=== PATIENT | female | born 1990 | race Caucasian/White ===

== ENCOUNTER 2016-11-25 16:25 | Emergency (ER) | payer SELFPAY ==
[~2016-11-25] VITALS: Ht 157.5 cm; Wt 52.0 kg
[2016-11-25 16:26] VITALS: BP 149/70; PULSE 77; RESP 15; TEMP 97.7; O2SAT 95
[2016-11-25] MEDS ORDERED: CIPR-9 PO (16:56)
[2016-11-25] MEDS ORDERED: SODIUM CHLOR 0.9% 1000 ML INJ 1,000 ML IV ONE (17:41)
[2016-11-25] MEDS ORDERED: KETOROLAC TROMETHAMINE 30 MG/ML (IVP) VIAL IVP ONE (17:45)
[2016-11-25] MEDS ORDERED: diphenhydrAMINE HCL 50 MG/ML VIAL IVP ONE (17:45)
[2016-11-25] MEDS ORDERED: METOCLOPRAMIDE HCL 10 MG/2 ML VIAL IVP ONE (17:45)
[2016-11-25] MEDS ORDERED: SODIUM CHLORIDE 0.9% FLUSH 5 ML FLUSH IVF PRN (17:45)
--- NOTE | 2016-11-25 17:55 | PD ---
HPI Chief Complaint: Headache Time Seen by Provider: 17:45 Travel History International Travel<30 days: No Contact w/Intl Traveler<30days: No Traveled to known affect area: No History of Present Illness HPI 26-year-old female presents for evaluation of headaches. She reports over the past 2 months she has been headaches which she describes as an aching pain which presents itself on the reports of her head. Currently she is having occipital headache which she sought has tenderness to palpation left posterior cervical lymph nodes and left axillary lymph nodes. Endorses nausea, occasional blurred vision. Denies vomiting, recent illness, sore throat, rash, cough or congestion, weight loss. She does endorse occasional nights sweats. She reports that she was seen for evaluation of these headaches last week at [facility] and [facility]. She reports that lab work, urinalysis and CT of the brain were performed. She was diagnosed with UTI and discharged with an antibiotic. She reports that the CT of the brain was normal. She denies any dysuria, increased urinary frequency or hesitancy. She reports that she has tried multiple medications that her friends have given her including Xanax, Fioricet, Percocet, diazepam, Flexeril as well as [id number] NSAIDs but the headache has persisted. She has no other complaints at this time. [facility] Past Medical History Medical History: Denies Significant Hx ?: Not LMP: 11/10/2016 Social History Tobacco Use: Yes Allergies-Medications (Allergen,Severity, Reaction): Coded Allergies: No Known Allergies (Unverified , 11/25/16) Reported Meds & Prescriptions Reported Meds & Active Scripts Active Zofran (Ondansetron HCl) 4 Mg Tab 4 Mg PO Q6HR PRN Reported Cipro (Ciprofloxacin HCl) 500 Mg Tab 500 Mg PO BID Review of Systems Except as stated in HPI: all other systems reviewed are Neg Physical Exam Narrative GENERAL: Well-developed well-nourished female in no acute distress SKIN: Warm and dry. HEAD: Atraumatic. Normocephalic. EYES: Pupils equal and round. No scleral icterus. No injection or drainage. ENT: No nasal bleeding or discharge. Mucous membranes pink and moist. No oropharyngeal erythema or exudate. NECK: Trachea midline. No JVD. The patient does have mild tender anterior cervical lymphadenopathy. Neck supple full range of motion. No other lymphadenopathy noted. CARDIOVASCULAR: Regular rate and rhythm. No murmur appreciated. RESPIRATORY: No accessory muscle use. Clear to auscultation. Breath sounds equal bilaterally. GASTROINTESTINAL: Abdomen soft, non-tender, nondistended. Hepatic and splenic margins not palpable. MUSCULOSKELETAL: No obvious deformities. The patient has mild tender left axillary lymphadenopathy. NEUROLOGICAL: Awake and alert. No obvious cranial nerve deficits. Motor grossly within normal limits. Normal speech. PSYCHIATRIC: Appropriate mood and affect; insight and judgment normal. Data Data Last Documented VS Vital Signs Date Time Temp Pulse Resp B/P Pulse Ox O2 Delivery O2 Flow Rate FiO2 11/25/16 18:32 92 20 130/48 99 Room Air 11/25/16 16:26 97.7 Orders Complete Blood Count With Diff (11/25/16 17:41) Comprehensive Metabolic Panel (11/25/16 17:41) Ecg Monitoring (11/25/16 17:41) Iv Access Insert/Monitor (11/25/16 17:41) Oximetry (11/25/16 17:41) Sodium Chloride 0.9% Flush (Ns Flush) (11/25/16 17:45) Ketorolac Inj (Toradol Inj) (11/25/16 17:45) Diphenhydramine Inj (Benadryl Inj) (11/25/16 17:45) Metoclopramide Inj (Reglan Inj) (11/25/16 17:45) Sodium Chlor 0.9% 1000 Ml Inj (Ns 1000 M (11/25/16 17:41) Monoscreen (11/25/16 17:41) Ed Urine Pregnancytest Poc (11/25/16 17:41) Labs Laboratory Tests Test 11/25/16 18:10 White Blood Count 10.3 TH/MM3 Red Blood Count 3.99 MIL/MM3 Hemoglobin 12.7 GM/DL Hematocrit 37.0 % Mean Corpuscular Volume 92.5 FL Mean Corpuscular Hemoglobin 31.8 PG Mean Corpuscular Hemoglobin 34.4 % Concent Red Cell Distribution Width 12.5 % Platelet Count 314 TH/MM3 Mean Platelet Volume 7.8 FL Neutrophils (%) (Auto) 48.8 % Lymphocytes (%) (Auto) 33.0 % Monocytes (%) (Auto) 7.6 % Eosinophils (%) (Auto) 9.9 % Basophils (%) (Auto) 0.7 % Neutrophils # (Auto) 5.0 TH/MM3 Lymphocytes # (Auto) 3.4 TH/MM3 Monocytes # (Auto) 0.8 TH/MM3 Eosinophils # (Auto) 1.0 TH/MM3 Basophils # (Auto) 0.1 TH/MM3 CBC Comment DIFF FINAL Differential Comment Sodium Level 140 MEQ/L Potassium Level 3.9 MEQ/L Chloride Level 106 MEQ/L Carbon Dioxide Level 29.4 MEQ/L Anion Gap 5 MEQ/L Blood Urea Nitrogen 7 MG/DL Creatinine 0.69 MG/DL Estimat Glomerular Filtration 101 ML/MIN Rate Random Glucose 81 MG/DL Calcium Level 8.4 MG/DL Total Bilirubin 0.2 MG/DL Aspartate Amino Transf 11 U/L (AST/SGOT) Alanine Aminotransferase 15 U/L (ALT/SGPT) Alkaline Phosphatase 52 U/L Total Protein 6.9 GM/DL Albumin 3.6 GM/DL Monoscreen NEG MDM Medical Decision Making Medical Screen Exam Complete: Yes Emergency Medical Condition: Yes Medical Record Reviewed: Yes Differential Diagnosis Occipital neuralgia, migraine, tumor, meningitis, pseudotumor cerebri, infectious mononucleosis, HIV, lymphoma, tension headache Narrative Course 26-year-old female who has had 2 months of headache. She also endorses tender left posterior cervical lymphadenopathy. Physical examination reveals mild left -sided posterior cervical lymphadenopathy, mild tender left axillary cervical lymphadenopathy. No obvious infectious etiology. No history of HIV, no IV drug use, no weight loss. Basic lab work was performed and was reassuring. The patient reports that she had CT imaging of the brain performed an outside emergency room last week which was unremarkable. The patient was given Toradol , Reglan, IV fluids and Benadryl and upon reexamination her headache has resolved. The etiology of this patient's pain is unknown. She was encouraged to follow-up with the primary care physician possibly for referral to neurologist if her headaches persist, also possible lymph node biopsy. She is agreeable with this plan. She is stable for discharge. Diagnosis Primary Impression: Headache Qualified Code: R51 - Nonintractable headache, unspecified chronicity pattern , unspecified headache type Additional Impression: Lymphadenopathy Additional Instructions: Stay well-hydrated and well-nourished. Get plenty of rest. As discussed follow -up with a primary care physician in the next week. You may have to follow up with a neurologist if headaches persist for further evaluation. Return for any new or worsening symptoms. Med/Other Pt SpecificInfo: Prescription(s) given Scripts Ondansetron (Zofran)4 Mg Tab4 Mg PO Q6HR PRN (NAUSEA OR VOMITING) #15 TAB Ref 0 Prov:Elizabeth Rangel MD 11/25/16 Disposition: 01 DISCHARGE HOME Condition: Stable Andres Dyer Nov 25, 2016 17:55
[2016-11-25 18:28] VITALS: O2SAT 98
[2016-11-25 18:31] LABS: BASOPHIL # 0.1 TH/MM3 (0-0.2); BASOPHIL % 0.7 % (0.0-2.0); EOSINOPHIL % 9.9 % (0.0-4.0); HEMO FLAGS DIFF FINAL; LYMPHOCYTE # 3.4 TH/MM3 (1.0-4.8); MEAN CELL VOLUME 92.5 FL (80.0-100.0); MEAN CORPUSCULAR HEMOGLOBIN 31.8 PG (27.0-34.0); MEAN CORPUSCULAR HGB CONC 34.4 % (32.0-36.0); MONO % 7.6 % (0.0-8.0); NEUT % 48.8 % (16.0-70.0); PLATELET COUNT 314 TH/MM3 (150-450); RED BLOOD COUNT 3.99 MIL/MM3 (4.00-5.30); RED CELL DISTRIBUTION WIDTH 12.5 % (11.6-17.2); WHITE BLOOD COUNT 10.3 TH/MM3 (4.0-11.0)
[2016-11-25 18:32] VITALS: BP 130/48; PULSE 92; RESP 20; O2SAT 99
[2016-11-25 18:48] LABS: ANION GAP 5 MEQ/L (5-15); AST (GOT) 11 U/L (15-37); BICARBONATE 29.4 MEQ/L (21.0-32.0); BLOOD UREA NITROGEN 7 MG/DL (7-18); CHLORIDE 106 MEQ/L (98-107); GLOMERULAR FILTRATION RATE 101 ML/MIN (>89); POTASSIUM 3.9 MEQ/L (3.5-5.1); SODIUM (NA) 140 MEQ/L (136-145)
[2016-11-25 18:51] LABS: ALKALINE PHOSPHATASE 52 U/L (45-117); ALT (GPT) 15 U/L (10-53); TOTAL BILIRUBIN ADULT 0.2 MG/DL (0.2-1.0)
[2016-11-25] MEDS ORDERED: ZOFR4TAB PO (19:14)
--- NOTE | 2016-11-25 19:22 | PD ---
Data Data Last Documented VS Vital Signs Date Time Temp Pulse Resp B/P Pulse Ox O2 Delivery O2 Flow Rate FiO2 11/25/16 18:32 92 20 130/48 99 Room Air 11/25/16 16:26 97.7 Orders Complete Blood Count With Diff (11/25/16 17:41) Comprehensive Metabolic Panel (11/25/16 17:41) Ecg Monitoring (11/25/16 17:41) Iv Access Insert/Monitor (11/25/16 17:41) Oximetry (11/25/16 17:41) Sodium Chloride 0.9% Flush (Ns Flush) (11/25/16 17:45) Ketorolac Inj (Toradol Inj) (11/25/16 17:45) Diphenhydramine Inj (Benadryl Inj) (11/25/16 17:45) Metoclopramide Inj (Reglan Inj) (11/25/16 17:45) Sodium Chlor 0.9% 1000 Ml Inj (Ns 1000 M (11/25/16 17:41) Monoscreen (11/25/16 17:41) Ed Urine Pregnancytest Poc (11/25/16 17:41) Labs Laboratory Tests Test 11/25/16 18:10 White Blood Count 10.3 TH/MM3 Red Blood Count 3.99 MIL/MM3 Hemoglobin 12.7 GM/DL Hematocrit 37.0 % Mean Corpuscular Volume 92.5 FL Mean Corpuscular Hemoglobin 31.8 PG Mean Corpuscular Hemoglobin 34.4 % Concent Red Cell Distribution Width 12.5 % Platelet Count 314 TH/MM3 Mean Platelet Volume 7.8 FL Neutrophils (%) (Auto) 48.8 % Lymphocytes (%) (Auto) 33.0 % Monocytes (%) (Auto) 7.6 % Eosinophils (%) (Auto) 9.9 % Basophils (%) (Auto) 0.7 % Neutrophils # (Auto) 5.0 TH/MM3 Lymphocytes # (Auto) 3.4 TH/MM3 Monocytes # (Auto) 0.8 TH/MM3 Eosinophils # (Auto) 1.0 TH/MM3 Basophils # (Auto) 0.1 TH/MM3 CBC Comment DIFF FINAL Differential Comment Sodium Level 140 MEQ/L Potassium Level 3.9 MEQ/L Chloride Level 106 MEQ/L Carbon Dioxide Level 29.4 MEQ/L Anion Gap 5 MEQ/L Blood Urea Nitrogen 7 MG/DL Creatinine 0.69 MG/DL Estimat Glomerular Filtration 101 ML/MIN Rate Random Glucose 81 MG/DL Calcium Level 8.4 MG/DL Total Bilirubin 0.2 MG/DL Aspartate Amino Transf 11 U/L (AST/SGOT) Alanine Aminotransferase 15 U/L (ALT/SGPT) Alkaline Phosphatase 52 U/L Total Protein 6.9 GM/DL Albumin 3.6 GM/DL Monoscreen NEG MDM Supervised Visit with MAC: Yes Narrative Course The history, exam, and medical decision-making in the associated midlevel provider note were completed with my assistance. I reviewed and agree with the findings presented. I attest that I had a [id number] encounter with the patient on the same day, and personally performed and documented my assessment and findings in the medical record. *My assessment and Findings: This is a 26-year-old female who presents to the emergency department with a headache that is subacute has been going on for weeks as well as some tender lymphadenopathy in her neck. On exam she does have some shotty lymphadenopathy in the left axilla as well as in the groin. She does have some night sweats. Her blood work is reassuring. We emphasized to the patient that is not impossible that she has lymphoma but really this is an outpatient diagnosis. Given she is well-appearing and nontoxic she needs to follow-up with a primary care physician. She expressed understanding. Diagnosis Primary Impression: Headache Qualified Code: R51 - Nonintractable headache, unspecified chronicity pattern , unspecified headache type Additional Impression: Lymphadenopathy Additional Instruction: Stay well-hydrated and well-nourished. Get plenty of rest. As discussed follow -up with a primary care physician in the next week. You may have to follow up with a neurologist if headaches persist for further evaluation. Return for any new or worsening symptoms. Scripts Ondansetron (Zofran)4 Mg Tab4 Mg PO Q6HR PRN (NAUSEA OR VOMITING) #15 TAB Ref 0 Prov:Elizabeth Rangel MD 11/25/16 Disposition: 01 DISCHARGE HOME Condition: Stable Elizabeth Rangel MD Nov 25, 2016 19:22
[2016-11-25 19:24] VITALS: BP 96/51; PULSE 92; RESP 15; O2SAT 99
== END 2016-11-25 19:56 | disposition home or self-care (01) ==
LOC: NEPB 16:25 → NEPE 19:56
DX: R51 Headache (principal); R59.0 Localized enlarged lymph nodes
CPT/HCPCS: 80053; 84703; 85025; 86308; 96374; 96375; 99284; J1200; J1885; J2765; J7030